=== PATIENT | male | born 1980 | race Caucasian/White ===

== ENCOUNTER → 2016-08-31 | Outpatient (CLI) | payer BC ==
--- NOTE | 2016-08-31 14:52 | US ---
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 EXAM MEASUREMENTS: Liver Length: 12.1 cm Gallbladder Wall: 0.3 cm CBD: 0.6 cm Right Kidney: 12.8 x 4.4 x 6.3 cm Pancreas: visualized portions wnl Liver: wnl Gallbladder: No stones seen Evidence for sonographic Philip's sign: No CBD: measures 0.6 cm Right Kidney: No hydronephrosis or masses seen IMPRESSION: Unremarkable study.
== END | disposition home or self-care (01) ==
LOC: RADUSWWP 14:04
PROVIDERS: ATTEND Internal Medicine Gastroenterology
DX: Z09 Encounter for follow-up examination after completed treatment for conditions other than malignant neoplasm (principal); Z86.19 Personal history of other infectious and parasitic diseases
CPT/HCPCS: 76705